=== PATIENT | male | born 1995 | race Hispanic/Latino ===

== ENCOUNTER 2017-07-06 15:27 | Emergency (ER) | payer OTHER ==
[2017-07-06] MEDS ORDERED: Ibuprofen 200 MG TAB ONE (15:41)
== END 2017-07-06 16:25 ==
LOC: NAV ERS 15:27
DX: S60.811A Abrasion of right wrist, initial encounter (principal); T23.002A Burn of unspecified degree of left hand, unspecified site, initial encounter; F10.129 Alcohol abuse with intoxication, unspecified; F17.210 Nicotine dependence, cigarettes, uncomplicated; V47.5XXA Car driver injured in collision with fixed or stationary object in traffic accident, initial encounter; Y92.488 Other paved roadways as the place of occurrence of the external cause
CPT/HCPCS: 99284